=== PATIENT | female | born 1970 | race Caucasian/White ===

== ENCOUNTER 2022-06-16 13:23 | Emergency (ER) | payer MEDICARE, MEDICAID ==
[~2022-06-16] VITALS: Ht 167.6 cm; Wt 130.0 kg
[2022-06-16 13:42] VITALS: BP 134/80
[2022-06-16] MEDS ORDERED: ibuprofen 200mg tablet PO ONE (14:50)
== END 2022-06-16 15:10 | disposition home or self-care (01) ==
LOC: ER 13:24
DX: S00.93XA Contusion of unspecified part of head, initial encounter (principal); W22.8XXA Striking against or struck by other objects, initial encounter; Y93.89 Activity, other specified; Y92.89 Other specified places as the place of occurrence of the external cause; Y99.8 Other external cause status
CPT/HCPCS: 99282